=== PATIENT | male | born 2000 | race Hispanic/Latino ===

== ENCOUNTER 2021-01-19 20:41 | Emergency (ER) | payer OTHER ==
[2021-01-19] MEDS ORDERED: IBUPROFEN600 MG PO (23:05)
[2021-01-19 23:30] VITALS: BP 123/70
== END 2021-01-19 23:30 | disposition home or self-care (01) | DRG 563 ==
LOC: ED 20:41
DX: M23.92 Unspecified internal derangement of left knee (principal); X50.0XXA Overexertion from strenuous movement or load, initial encounter; Y93.73 Activity, racquet and hand sports
CPT/HCPCS: L1830